=== PATIENT | female | born 1970 | race Caucasian/White ===

== ENCOUNTER → 2016-06-19 10:15 | Outpatient (CLI) | payer OTHER ==
--- NOTE | ~2016-06-19 | EEG ---
PATIENT:GABBY PHILIP DATE OF SERVICE: 06/19/16 MEDICAL RECORD: [id number] DATE OF : 72 LOCATION: [facility] ADMISSION DATE: 06/19/16 REFERRING PHYSICIAN: INTERPRETING PHYSICIAN: SYLVIA CACERES MD DATE OF SERVICE: 06/19/2016 Referred by myself as an outpatient. ELECTROENCEPHALOGRAM NUMBER: [id number]. DATE OF EXAMINATION: 06/19/2016 at 11:00 a.m. TECHNICAL DATA: This electroencephalographic recording consists of approximately 20 minutes of data collection utilizing the international 10/20 system of electrode placement and both referential and non-referential montages. Sixteen channels of electrocerebral recording are accompanied by a 17th channel dedicated to the electrocardiographic rhythm and 2 channels of electromyographic recording. Recording is performed entirely in the waking state utilizing activation by hyperventilation and photic stimulation. ELECTROENCEPHALOGRAPHIC DATA: The awake state comprises the entirety of the recorded electrocerebral activity. Electromyographic artifact is prominent and rapid eye movements are seen. The posterior dominant background consists of a well-developed, symmetric, rhythmic, waxing and waning alpha activity of 10-11 Hz, which is suppressed by eye opening. There is also excessive fast activity in the range of 20 to 25 Hz felt to be a medication effect. No abnormal or focal slowing is identified. No epileptiform discharges are seen. Hyperventilation and photic stimulation induced no abnormal change in the recorded electrocerebral activity. INTERPRETATION: Normal (awake). This is a normal waking electroencephalographic recording. TRANSINT:[id number] Voice Confirmation ID: [id number] DOCUMENT ID: [id number] SYLVIA CACERES MD CC: [id number] DICTATION DATE: 06/21/[address] SUPERVISOR: 06/21/16 1130 DEP CLI 06/19/16 [id number] [place] [address]
== END | disposition home or self-care (01) ==
LOC: D.CN 06-08 10:00 → D.MRI 06-08 14:00 → D.CN 06-10 10:00 → D.MRI 06-17 11:00 → D.CN 10:00
DX: G40.101 Localization-related (focal) (partial) symptomatic epilepsy and epileptic syndromes with simple partial seizures, not intractable, with status epilepticus (principal)

== ENCOUNTER → 2017-07-02 18:44 | Outpatient (CLI) | payer OTHER | END | disposition home or self-care (01) | LOC: D.MAMMO 06-28 10:15 | DX: Z12.31 Encounter for screening mammogram for malignant neoplasm of breast (principal) ==

== ENCOUNTER → 2017-12-22 18:32 | Outpatient (CLI) | payer MEDICAID | END | disposition home or self-care (01) | LOC: D.MAMMO 12-01 13:30 | DX: R92.8 Other abnormal and inconclusive findings on diagnostic imaging of breast (principal) ==